=== PATIENT | male | born 1985 | race Two or more races ===

== ENCOUNTER 2023-04-04 23:31 | Emergency (ER) | payer SELFPAY ==
[~2023-04-04] VITALS: Ht 177.8 cm; Wt 78.0 kg
[2023-04-04 23:57] VITALS: BP 131/76; TEMP 98; O2SAT 98
[2023-04-05] MEDS ORDERED: LIDOCAINE 1%-EPI 1:100,000 20 ML VIAL TP ONE (00:30)
[2023-04-05] MEDS ORDERED: LIDOCAINE 1%-EPI 1:100,000 20 ML VIAL ONE (01:02)
== END 2023-04-05 02:14 | disposition home or self-care (01) ==
LOC: ER 23:33
DX: S01.112A Laceration without foreign body of left eyelid and periocular area, initial encounter (principal); Y04.8XXA Assault by other bodily force, initial encounter; Y93.89 Activity, other specified; Y92.89 Other specified places as the place of occurrence of the external cause; Y99.8 Other external cause status
CPT/HCPCS: 12052; 99282; J3490